=== PATIENT | male | born 1945 | race Two or more races ===

== ENCOUNTER 2020-09-02 17:23 | Emergency (ER) | payer MEDICARE, MEDICAID ==
[~2020-09-02] VITALS: Ht 165.1 cm; Wt 81.6 kg
[2020-09-02 23:17] LABS: Basophils # (auto) 0.1 10 ^3/uL (0-0.2); Basophils % (auto) 0.9 % (0.0-2.0); Eosinophils # (auto) 0.8 10 ^3/uL (0-0.8); Eosinophils % (auto) 11.2 % (0.0-7.0); Hematocrit 31.5 % (41.0-53.0); Hemoglobin 10.5 g/dL (13.5-17.5); Lymphocytes # (auto) 2.4 10 ^3/uL (0.4-5.4); Lymphocytes % (auto) 32.4 % (10.0-50.0); Mean Corpuscular Hemoglobin 28.6 pg (28.0-32.0); Mean Corpuscular Hgb Conc. 33.4 g/dL (32.0-36.0); Mean Corpuscular Volume 85.5 fL (80.0-100.0); Monocytes # (auto) 0.5 10 ^3/uL (0-1.3); Monocytes % (auto) 6.8 % (0.0-12.0); Neutrophils # (auto) 3.6 10 ^3/uL (1.6-8.6); Neutrophils % (auto) 48.7 % (37.0-80.0); Platelet Count (auto) 350 10^3/uL (140-450); Red Blood Cells 3.68 10^6/uL (4.5-5.90); Red Cell Distribution Width 16.3 % (11.8-14.3); White Blood Cell 7.3 10^3/uL (4.4-10.8)
[2020-09-03 00:23] VITALS: BP 131/72
== END 2020-09-03 00:38 | disposition home or self-care (01) ==
LOC: ER 17:23
DX: M79.89 Other specified soft tissue disorders (principal); M10.9 Gout, unspecified; D64.9 Anemia, unspecified; M75.82 Other shoulder lesions, left shoulder
CPT/HCPCS: 36415; 73030; 73130; 84550; 85025; 93971

== ENCOUNTER 2020-10-15 16:27 | Emergency (ER) | payer MEDICARE, MEDICAID ==
[~2020-10-15] VITALS: Ht 162.6 cm; Wt 68.0 kg
[2020-10-15 19:04] VITALS: BP 111/58
== END 2020-10-15 20:34 | disposition home or self-care (01) ==
LOC: ER 16:27
DX: S09.90XA Unspecified injury of head, initial encounter (principal); I10 Essential (primary) hypertension; K21.9 Gastro-esophageal reflux disease without esophagitis; E11.9 Type 2 diabetes mellitus without complications; E78.5 Hyperlipidemia, unspecified; Z89.511 Acquired absence of right leg below knee; X58.XXXA Exposure to other specified factors, initial encounter; Y93.89 Activity, other specified; Y92.89 Other specified places as the place of occurrence of the external cause; Y99.8 Other external cause status
CPT/HCPCS: 70450

== ENCOUNTER 2021-01-06 15:52 | Inpatient (IN) | payer MEDICARE, MEDICAID ==
[~2021-01-06] VITALS: Ht 165.1 cm; Wt 70.6 kg
[2021-01-06] MEDS ORDERED: CLINDAMYCIN 600MG IV 50 ML IV ONE (16:30)
[2021-01-06 17:06] LABS: Albumin 3.1 g/dL (3.4-5.0); BUN/Creatinine Ratio 21.2; Calcium 8.1 mg/dL (8.5-10.1)
[2021-01-06 17:09] LABS: Bilirubin, Total 0.2 mg/dL (0.2-1.0); Total Protein 7.1 g/dL (6.4-8.2)
[2021-01-06 17:31] LABS: INR 0.93 (0.9-1.15); Partial Thromboplastin Time 25.5 sec (23.0-31.2)
[2021-01-06 17:35] LABS: Basophils # (auto) 0 10 ^3/uL (0-0.2); Basophils % (auto) 0.5 % (0.0-2.0); Eosinophils # (auto) 0.1 10 ^3/uL (0-0.8); Hematocrit 31.5 % (41.0-53.0); Hemoglobin 10.6 g/dL (13.5-17.5); Lymphocytes # (auto) 1.4 10 ^3/uL (0.4-5.4); Lymphocytes % (auto) 24.9 % (10.0-50.0); Mean Corpuscular Hemoglobin 28.1 pg (28.0-32.0); Mean Corpuscular Hgb Conc. 33.7 g/dL (32.0-36.0); Mean Corpuscular Volume 83.4 fL (80.0-100.0); Monocytes # (auto) 0.4 10 ^3/uL (0-1.3); Monocytes % (auto) 6.9 % (0.0-12.0); Neutrophils # (auto) 3.7 10 ^3/uL (1.6-8.6); Neutrophils % (auto) 66.7 % (37.0-80.0); Nucleated Red Blood Cells % 0.1 %; Red Blood Cells 3.77 10^6/uL (4.5-5.90); Red Cell Distribution Width 17.6 % (11.8-14.3); White Blood Cell 5.5 10^3/uL (4.4-10.8)
[2021-01-06] MEDS ORDERED: HYDROcodone-ACET 5/325MG TAB PO PRN (18:30)
[2021-01-06] MEDS ORDERED: MORPHINE SULF INJ 2 MG/ML SYRINGE 1ML IV PRN ×2 (18:30)
[2021-01-06] MEDS ORDERED: ACETAMINOPHEN 500 MG TAB PO PRN (18:30)
[2021-01-06] MEDS ORDERED: ONDANSETRON HCL 4 MG/2 ML VIAL IV PRN (18:30)
[2021-01-06] MEDS ORDERED: NITROGLYCERIN 0.4 MG SL TAB SL PRN (18:30)
[2021-01-06] MEDS ORDERED: DEXTROSE (50%) 50ML SYRG IV PRN (18:30)
[2021-01-06] MEDS: SOD CHL 0.45% 1,000 ML IV SCH (19:06)
[2021-01-06] MEDS: CLINDAMYCIN 600MG IV 50 ML IV SCH (21:46)
[2021-01-06] MEDS: ACCU-CHEK COMFORT CURVE STRIP VI SCH (21:47)
[2021-01-06] MEDS: InsuLIN REG 1unit/0.01ml Soln (100units/ml) SC SCH (21:48)
[2021-01-06 22:00] VITALS: BP 128/66
[2021-01-06] MEDS ORDERED: CLINDAMYCIN 300MG IV 50 ML IV SCH (22:00)
[2021-01-06] MEDS ORDERED: metroNIDAZOLE 500MG/100ML 100 ML IV SCH (22:00)
[2021-01-07] MEDS: SOD CHL 0.45% 1,000 ML IV SCH ×2 (04:30→17:15)
[2021-01-07 05:00] VITALS: BP 142/72
[2021-01-07] MEDS: ACCU-CHEK COMFORT CURVE STRIP VI SCH ×4 (06:00→22:00)
[2021-01-07] MEDS: InsuLIN REG 1unit/0.01ml Soln (100units/ml) SC SCH ×4 (06:43→22:00)
[2021-01-07] MEDS: CLINDAMYCIN 600MG IV 50 ML IV SCH ×3 (06:55→22:00)
[2021-01-07] MEDS: FAMOTIDINE 20 MG TAB PO SCH (08:51)
[2021-01-07] MEDS: ENOXAPARIN SOD 40 MG/0.4 ML SYRINGE SC SCH (08:51)
[2021-01-07] MEDS: cefTRIAXone 1GM/50ML D5W 50 ML IV SCH (08:51)
[2021-01-07 08:55] VITALS: BP 148/68
[2021-01-07 13:00] VITALS: BP 133/85
[2021-01-07] MEDS ORDERED: SODIUM ZIRCONIUM CYCL 10 GM PAK PO ONE (16:15)
[2021-01-07 16:55] VITALS: BP 155/77
[2021-01-07 22:00] VITALS: BP 145/76
[2021-01-08] VITALS (8 sets, daily range): BP systolic 101–159; BP diastolic 57–83
[2021-01-08] MEDS: SOD CHL 0.45% 1,000 ML IV SCH ×2 (00:30→10:30)
[2021-01-08] MEDS: CLINDAMYCIN 600MG IV 50 ML IV SCH ×3 (06:00→22:05)
[2021-01-08 06:02] LABS: Basophils # (auto) 0.1 10 ^3/uL (0-0.2); Basophils % (auto) 0.9 % (0.0-2.0); Eosinophils # (auto) 0.2 10 ^3/uL (0-0.8); Eosinophils % (auto) 2.7 % (0.0-7.0); Hemoglobin 10.6 g/dL (13.5-17.5); Lymphocytes # (auto) 1.6 10 ^3/uL (0.4-5.4); Lymphocytes % (auto) 19.6 % (10.0-50.0); Mean Corpuscular Hemoglobin 27.8 pg (28.0-32.0); Mean Corpuscular Hgb Conc. 34.1 g/dL (32.0-36.0); Mean Corpuscular Volume 81.5 fL (80.0-100.0); Monocytes # (auto) 0.7 10 ^3/uL (0-1.3); Monocytes % (auto) 9.1 % (0.0-12.0); Neutrophils # (auto) 5.5 10 ^3/uL (1.6-8.6); Neutrophils % (auto) 67.7 % (37.0-80.0); Nucleated Red Blood Cells % 0.1 %; Red Cell Distribution Width 17.4 % (11.8-14.3); White Blood Cell 8.1 10^3/uL (4.4-10.8)
[2021-01-08 06:38] LABS: Potassium 4.9 mmol/L (3.5-5.1)
[2021-01-08 06:44] LABS: BUN/Creatinine Ratio 22.5; Calcium 8.3 mg/dL (8.5-10.1)
[2021-01-08] MEDS: InsuLIN REG 1unit/0.01ml Soln (100units/ml) SC SCH ×4 (07:00→22:00)
[2021-01-08] MEDS: ACCU-CHEK COMFORT CURVE STRIP VI SCH ×4 (07:00→22:12)
[2021-01-08 07:36] LABS: INR 0.97 (0.9-1.15); Partial Thromboplastin Time 24.9 sec (23.0-31.2)
[2021-01-08] MEDS: cefTRIAXone 1GM/50ML D5W 50 ML IV SCH (09:19)
[2021-01-08] MEDS ORDERED: PROPOFOL 10 MG/ML 20 ML IV ONE (09:33)
[2021-01-08] MEDS ORDERED: ONDANSETRON HCL 4 MG/2 ML VIAL ONE (09:33)
[2021-01-08] MEDS ORDERED: MIDAZOLAM HCL 1MG/1ML-2 ML VIAL ONE ×2 (09:33→10:33)
[2021-01-08] MEDS ORDERED: fentaNYL CITRATE 100 MCG/2 ML VL ONE (09:33)
[2021-01-08] MEDS ORDERED: SODIUM CHLORIDE LOCK 10 ML ONE (09:33)
[2021-01-08] MEDS ORDERED: ROPIVACAINE 0.5% (5MG/ML) 20ML AMPULE IJ ONE (09:52)
[2021-01-08] MEDS: ceFAZolin 1GM VL ONE ×2 (09:52→10:55)
[2021-01-08] MEDS ORDERED: METOCLOPRAMIDE HCL 5MG/ml INJ 2ml VIAL IV PRN (10:15)
[2021-01-08] MEDS ORDERED: HYDROmorphone HCL 2 MG/ML VL IV PRN (10:15)
[2021-01-08] MEDS ORDERED: MORPHINE SULFATE 4 MG/ML SYR/VIAL IV PRN (10:15)
[2021-01-08] MEDS ORDERED: ACCU-CHEK COMFORT CURVE STRIP VI ONE (10:15)
[2021-01-08] MEDS: FAMOTIDINE 20 MG TAB PO SCH (12:05)
[2021-01-08] MEDS: ENOXAPARIN SOD 40 MG/0.4 ML SYRINGE SC SCH (12:07)
[2021-01-09 05:45] LABS: Urine Bacteria FEW /hpf (None Seen); Urine Blood Negative /uL (Negative); Urine Specific Gravity 1.012 (1.001-1.035); Urine WBC 1 /hpf (0 - 3)
[2021-01-09] MEDS: ACCU-CHEK COMFORT CURVE STRIP VI SCH ×4 (06:04→21:48)
[2021-01-09] MEDS: CLINDAMYCIN 600MG IV 50 ML IV SCH ×3 (06:06→21:53)
[2021-01-09] MEDS: InsuLIN REG 1unit/0.01ml Soln (100units/ml) SC SCH ×4 (06:17→22:08)
[2021-01-09 06:24] LABS: Basophils # (auto) 0 10 ^3/uL (0-0.2); Basophils % (auto) 0.6 % (0.0-2.0); Eosinophils # (auto) 0.1 10 ^3/uL (0-0.8); Eosinophils % (auto) 1.1 % (0.0-7.0); Hematocrit 30.7 % (41.0-53.0); Hemoglobin 10.3 g/dL (13.5-17.5); Lymphocytes # (auto) 1.4 10 ^3/uL (0.4-5.4); Lymphocytes % (auto) 18.2 % (10.0-50.0); Mean Corpuscular Hemoglobin 27.6 pg (28.0-32.0); Mean Corpuscular Hgb Conc. 33.7 g/dL (32.0-36.0); Mean Corpuscular Volume 82.1 fL (80.0-100.0); Monocytes # (auto) 0.7 10 ^3/uL (0-1.3); Neutrophils # (auto) 5.5 10 ^3/uL (1.6-8.6); Neutrophils % (auto) 71.1 % (37.0-80.0); Red Blood Cells 3.74 10^6/uL (4.5-5.90); Red Cell Distribution Width 16.9 % (11.8-14.3); White Blood Cell 7.8 10^3/uL (4.4-10.8)
[2021-01-09 07:02] VITALS: BP 124/48
[2021-01-09 07:18] LABS: BUN/Creatinine Ratio 21.8; Calcium 8.5 mg/dL (8.5-10.1); Potassium 4.6 mmol/L (3.5-5.1)
[2021-01-09 08:00] VITALS: BP 132/83
[2021-01-09] MEDS: ENOXAPARIN SOD 40 MG/0.4 ML SYRINGE SC SCH (08:52)
[2021-01-09] MEDS: cefTRIAXone 1GM/50ML D5W 50 ML IV SCH (08:53)
[2021-01-09 09:18] VITALS: BP 169/75
[2021-01-09] MEDS ORDERED: LIDOCAINE 2%HCL (LOCAL ANESTH.) INJ 20ML MDV ONE (13:28)
[2021-01-09] MEDS ORDERED: IOHEXOL 350 MG/ML 100ML IJ ONE (13:28)
[2021-01-09] MEDS ORDERED: ANGIOMAX 250 MG VIAL IV ONE (13:51)
[2021-01-09] MEDS ORDERED: MIDAZOLAM HCL 1MG/1ML-2 ML VIAL ONE (13:52)
[2021-01-09] MEDS ORDERED: fentaNYL CITRATE 100 MCG/2 ML VL ONE (13:52)
[2021-01-09] MEDS ORDERED: SODIUM CHL 0.9% 50 ML ONE (13:52)
[2021-01-09] MEDS ORDERED: IODIXANOL 320MG/ML 100ML BTL IV ONE (14:26)
[2021-01-09 16:10] VITALS: BP 153/83
[2021-01-09] MEDS: FAMOTIDINE 20 MG TAB PO SCH (16:30)
[2021-01-09 17:00] VITALS: BP 145/64
[2021-01-09 22:00] VITALS: BP 108/76
[2021-01-10 05:00] VITALS: BP 116/60
[2021-01-10] MEDS: ACCU-CHEK COMFORT CURVE STRIP VI SCH ×3 (06:01→17:00)
[2021-01-10] MEDS: CLINDAMYCIN 600MG IV 50 ML IV SCH ×2 (06:02→15:01)
[2021-01-10] MEDS: InsuLIN REG 1unit/0.01ml Soln (100units/ml) SC SCH ×3 (06:10→17:00)
[2021-01-10 09:10] LABS: Basophils # (auto) 0.1 10 ^3/uL (0-0.2); Basophils % (auto) 0.7 % (0.0-2.0); Eosinophils # (auto) 0.2 10 ^3/uL (0-0.8); Eosinophils % (auto) 1.8 % (0.0-7.0); Hematocrit 29.8 % (41.0-53.0); Hemoglobin 9.9 g/dL (13.5-17.5); Lymphocytes # (auto) 1.8 10 ^3/uL (0.4-5.4); Lymphocytes % (auto) 20.2 % (10.0-50.0); Mean Corpuscular Hemoglobin 27.1 pg (28.0-32.0); Mean Corpuscular Hgb Conc. 33.2 g/dL (32.0-36.0); Mean Corpuscular Volume 81.7 fL (80.0-100.0); Monocytes # (auto) 0.7 10 ^3/uL (0-1.3); Monocytes % (auto) 8.6 % (0.0-12.0); Neutrophils % (auto) 68.7 % (37.0-80.0); Nucleated Red Blood Cells % 0.1 %; Red Blood Cells 3.65 10^6/uL (4.5-5.90); Red Cell Distribution Width 17.3 % (11.8-14.3); White Blood Cell 8.7 10^3/uL (4.4-10.8)
[2021-01-10] MEDS: FAMOTIDINE 20 MG TAB PO SCH (09:14)
[2021-01-10] MEDS: ENOXAPARIN SOD 40 MG/0.4 ML SYRINGE SC SCH (09:14)
[2021-01-10] MEDS: cefTRIAXone 1GM/50ML D5W 50 ML IV SCH (09:14)
[2021-01-10 09:37] LABS: Calcium 8.7 mg/dL (8.5-10.1); Potassium 4.3 mmol/L (3.5-5.1)
[2021-01-10 09:39] LABS: BUN/Creatinine Ratio 20.5
[2021-01-10 12:00] VITALS: BP 151/67
[2021-01-10 17:00] VITALS: BP 153/81
[2021-01-10 19:26] VITALS: BP 151/67
== END 2021-01-10 20:14 | DRG 253 ==
LOC: ER 15:52 → TELE 18:22 → TELE-WESTW 20:25
PROVIDERS: ADMIT Nurse Practitioner Acute Care; ATTEND Internal Medicine Pulmonary Disease
PROC: 0HRLXK3 Replacement of Left Lower Leg Skin with Nonautologous Tissue Substitute, Full Thickness, External Approach (ICD-10-PCS; 2021-01-08)
PROC: 05JYXZZ Inspection of Upper Vein, External Approach (ICD-10-PCS; 2021-01-08)
PROC: 0Y6Q0Z0 Detachment at Left 1st Toe, Complete, Open Approach (ICD-10-PCS; principal; 2021-01-08 10:09)
PROC: 047U3ZZ Dilation of Left Peroneal Artery, Percutaneous Approach (ICD-10-PCS; 2021-01-09)
PROC: 047Q3ZZ Dilation of Left Anterior Tibial Artery, Percutaneous Approach (ICD-10-PCS; 2021-01-09)
PROC: B41FYZZ Fluoroscopy of Right Lower Extremity Arteries using Other Contrast (ICD-10-PCS; 2021-01-09)
PROC: B41GYZZ Fluoroscopy of Left Lower Extremity Arteries using Other Contrast (ICD-10-PCS; 2021-01-09)
PROC: 05HY33Z Insertion of Infusion Device into Upper Vein, Percutaneous Approach (ICD-10-PCS; 2021-01-09)
DX: E11.51 Type 2 diabetes mellitus with diabetic peripheral angiopathy without gangrene (principal); M86.8X7 Other osteomyelitis, ankle and foot; L97.829 Non-pressure chronic ulcer of other part of left lower leg with unspecified severity; E44.1 Mild protein-calorie malnutrition; E11.621 Type 2 diabetes mellitus with foot ulcer; E11.69 Type 2 diabetes mellitus with other specified complication; N18.32 Chronic kidney disease, stage 3b; E66.9 Obesity, unspecified; D64.9 Anemia, unspecified; Z20.822 Contact with and (suspected) exposure to COVID-19; E11.40 Type 2 diabetes mellitus with diabetic neuropathy, unspecified; E11.22 Type 2 diabetes mellitus with diabetic chronic kidney disease; E78.5 Hyperlipidemia, unspecified; E87.5 Hyperkalemia; I12.9 Hypertensive chronic kidney disease with stage 1 through stage 4 chronic kidney disease, or unspecified chronic kidney disease; L97.529 Non-pressure chronic ulcer of other part of left foot with unspecified severity; Z79.84 Long term (current) use of oral hypoglycemic drugs; Z83.3 Family history of diabetes mellitus; Z89.519 Acquired absence of unspecified leg below knee; Z68.26 Body mass index [BMI] 26.0-26.9, adult; K21.9 Gastro-esophageal reflux disease without esophagitis
CPT/HCPCS: 36415; 36569; 71045; 73700; 78315; 80048; 80053; 81001; 82962; 83036; 85025; 85610; 85652; 85730; 86850; 86900; 86901; 87086; 87205; 87426; 93005; 96361; 96365; 99152; 99153; C1769; C1894; G0378; J0690; J0696; J1815; J2250; J2405; J2704; J3490; Q9967

== ENCOUNTER 2021-04-17 02:41 | Emergency (ER) | payer MEDICARE, MEDICAID ==
[~2021-04-17] VITALS: Ht 162.6 cm; Wt 54.4 kg
[2021-04-17 03:10] VITALS: BP 210/93
[2021-04-17] MEDS ORDERED: NIFEdipine 10 MG CAP PO ONE (03:30)
[2021-04-17 03:52] LABS: Basophils # (auto) 0 10 ^3/uL (0-0.2); White Blood Cell 7.2 10^3/uL (4.4-10.8)
[2021-04-17 03:53] LABS: Basophils % (auto) 0.6 % (0.0-2.0); Eosinophils # (auto) 0.5 10 ^3/uL (0-0.8); Eosinophils % (auto) 6.7 % (0.0-7.0); Hematocrit 30.2 % (41.0-53.0); Hemoglobin 10.2 g/dL (13.5-17.5); Lymphocytes # (auto) 3.2 10 ^3/uL (0.4-5.4); Lymphocytes % (auto) 45.2 % (10.0-50.0); Mean Corpuscular Hemoglobin 26.4 pg (28.0-32.0); Mean Corpuscular Hgb Conc. 33.7 g/dL (32.0-36.0); Mean Corpuscular Volume 78.2 fL (80.0-100.0); Monocytes # (auto) 0.5 10 ^3/uL (0-1.3); Monocytes % (auto) 6.8 % (0.0-12.0); Neutrophils # (auto) 2.9 10 ^3/uL (1.6-8.6); Neutrophils % (auto) 40.7 % (37.0-80.0); Red Blood Cells 3.86 10^6/uL (4.5-5.90); Red Cell Distribution Width 16.9 % (11.8-14.3)
[2021-04-17 04:25] LABS: Urine Bacteria NONE SEEN /hpf (None Seen); Urine Blood Negative /uL (Negative); Urine Specific Gravity 1.013 (1.001-1.035); Urine WBC 1 /hpf (0 - 3)
[2021-04-17 04:38] LABS: Alanine Aminotransferase 19 U/L (16-61); Albumin 2.6 g/dL (3.4-5.0); Anion Gap 5 (5-15); Blood Urea Nitrogen 26 mg/dL (7-18); Calcium 7.9 mg/dL (8.5-10.1); Carbon Dioxide 27 mmol/L (21-32); Chloride 106 mmol/L (98-107); Glucose 298 mg/dL (74-106); Magnesium 2.4 mg/dL (1.6-2.6); Potassium 3.8 mmol/L (3.5-5.1); Sodium 138 mmol/L (136-145)
[2021-04-17 04:44] LABS: Alkaline Phosphatase 106 U/L (45-117); Aspartate Aminotransferase 15 U/L (15-37); Bilirubin, Total 0.2 mg/dL (0.2-1.0); GFR African American 69 mL/min; GFR Non-African American 57 mL/min; Total Protein 6.8 g/dL (6.4-8.2)
[2021-04-17] MEDS ORDERED: SODIUM CHLORIDE 0.9% 1,000 ML IV ONE (05:00)
== END 2021-04-17 06:13 | disposition home or self-care (01) ==
LOC: EDBD 02:41 → ER 02:41
DX: I10 Essential (primary) hypertension (principal); R51.9 Headache, unspecified; E11.65 Type 2 diabetes mellitus with hyperglycemia
CPT/HCPCS: 36415; 70450; 71045; 80053; 81001; 82962; 83735; 83880; 84484; 85025; 85379; 93005; 96360; 99285; J7030; 81002

== ENCOUNTER 2022-02-07 21:20 | Emergency (ER) | payer MEDICARE, MEDICAID | END 2022-02-07 21:21 | disposition left against medical advice (07) | LOC: ER 21:20 → EDBD 21:20 → ER 21:21 | DX: R55 Syncope and collapse (principal); Z53.21 Procedure and treatment not carried out due to patient leaving prior to being seen by health care provider ==